=== PATIENT | male | born 1995 | race Two or more races ===

== ENCOUNTER 2018-06-07 12:19 | Emergency (ER) | payer SELFPAY ==
[~2018-06-07] VITALS: Ht 170.2 cm; Wt 100.5 kg
[2018-06-07 13:21] VITALS: BP 131/62
[2018-06-07] MEDS ORDERED: DIPH,PERTUSS(ACELL),TET VAC/PF 0.5 ML IM-VACC ONE ×2 (13:30→14:17)
[2018-06-07] MEDS ORDERED: LIDOCAINE 1%, 10ML INFIL ONE (13:30)
--- NOTE | 2018-06-07 13:46 | NUR ---
FROM LOBBY TO ROOM AT THIS TIME
[2018-06-07] MEDS ORDERED: LIDOCAINE-MPF 1%, 5ML ONE (14:17)
== END 2018-06-07 14:52 | disposition home or self-care (01) ==
LOC: ED 14:50
DX: L02.811 Cutaneous abscess of head [any part, except face] (principal)
CPT/HCPCS: 90471; 90715; 99283

== ENCOUNTER 2019-05-14 18:11 | Emergency (ER) | payer MEDICAID ==
[~2019-05-14] VITALS: Ht 170.2 cm; Wt 123.4 kg
[2019-05-14 20:25] VITALS: BP 133/74
--- NOTE | 2019-05-14 20:34 | NUR ---
INTERMITTENT CP RADIATING ACROSS LEFT CHEST & LEFT ARM. STARTING YESTERDAY NIGHT. 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
== END 2019-05-14 21:20 | disposition home or self-care (01) ==
LOC: ED 21:10
DX: R07.89 Other chest pain (principal); M79.602 Pain in left arm
CPT/HCPCS: 71046; 93005; 99283